=== PATIENT | male | born 1945 | race Caucasian/White ===

== ENCOUNTER 2017-10-20 19:33 | Emergency (ER) | payer OTHER, MEDICARE ==
[~2017-10-20] VITALS: Ht 175.3 cm; Wt 111.1 kg
[~2017-10-20 19:33] MED LIST: ASPIRIN81 M2 PO; BYSTOLIC10 MG PO; BYSTOLIC20 MG PO; CARDURA2 M1 PO; COREG12.5 M1 PO; COZAAR50 MG PO; GLUCOSAMINE-CH1 EA28 PO; LIPITOR80 MG PO; PLAVIX75 MG PO; PROVIGIL200 MG PO; VITAMIN B12-FO1 EACH PO; VITAMIN B125000 MCG PO; VITAMIN D33000 UNIT PO; VITAMIN D35000 UNIT PO; ZETIA10 MG PO
[2017-10-20 20:55] VITALS: BP 140/65
== END 2017-10-20 20:55 | disposition home or self-care (01) ==
LOC: EME 19:33
PROC: 0HQ1XZZ Repair Face Skin, External Approach (ICD-10-PCS; principal; 2017-10-20)
PROC: 3E0234Z Introduction of Serum, Toxoid and Vaccine into Muscle, Percutaneous Approach (ICD-10-PCS; principal; 2017-10-20)
DX: S01.112A Laceration without foreign body of left eyelid and periocular area, initial encounter (principal); S00.03XA Contusion of scalp, initial encounter; W18.41XA Slipping, tripping and stumbling without falling due to stepping on object, initial encounter; Z97.3 Presence of spectacles and contact lenses; Z23 Encounter for immunization; Z79.82 Long term (current) use of aspirin; E78.5 Hyperlipidemia, unspecified; I10 Essential (primary) hypertension
CPT/HCPCS: 70150; 99281; 99283